=== PATIENT | female | born 1970 | race Caucasian/White ===

== ENCOUNTER 2019-09-15 | Emergency (ER) | payer SELFPAY ==
[~2019-09-15] MED LIST: ANUSOL-HC25 MG RE; CLINDAMYCIN150 MG OR; DARVOCET-N100 MG OR; DOXYCYCL HYC100 M3 OR; IRON50 MG OR; LORTAB 5 OR; NO MEDS; PRENATA2 OR; PRENATA3 OR; PREPARATIO H RE; PRILOSEC OTC20 MG OR; ULTRAM50 MG PO; ZITHROMAX250 MG OR; ZOFRAN ODT8 MG SL; ZPAK OR
== END 2019-09-15 21:25 | disposition home or self-care (01) | DRG 563 ==
DX: S93.401A Sprain of unspecified ligament of right ankle, initial encounter (principal); F17.210 Nicotine dependence, cigarettes, uncomplicated; W19.XXXA Unspecified fall, initial encounter; Y92.009 Unspecified place in unspecified non-institutional (private) residence as the place of occurrence of the external cause

== ENCOUNTER 2021-12-31 21:16 | Emergency (ER) | payer SELFPAY ==
[~2021-12-31] VITALS: Ht 165.1 cm; Wt 45.2 kg
[2021-12-31 23:07] VITALS: BP 142/93
[2021-12-31] MEDS ORDERED: BACTRIM DS1 TAB PO (23:21)
[2021-12-31 23:22] VITALS: BP 151/76
[2021-12-31 23:30] VITALS: BP 151/76
== END 2021-12-31 23:36 | disposition home or self-care (01) | DRG 759 ==
LOC: ED 21:16
PROC: 0U9L0ZZ Drainage of Vestibular Gland, Open Approach (ICD-10-PCS; principal; 2021-12-31)
DX: N75.1 Abscess of Bartholin's gland (principal); F17.200 Nicotine dependence, unspecified, uncomplicated

== ENCOUNTER 2022-01-03 10:13 | Emergency (ER) | payer SELFPAY ==
[~2022-01-03] VITALS: Ht 165.1 cm; Wt 45.4 kg
[~2022-01-03 10:13] MED LIST changes: +BACTRIM DS1 TAB PO
[2022-01-03 11:28] VITALS: BP 133/86
== END 2022-01-03 11:25 | disposition home or self-care (01) | DRG 951 ==
LOC: ED 10:13
DX: Z48.01 Encounter for change or removal of surgical wound dressing (principal); F17.200 Nicotine dependence, unspecified, uncomplicated